=== PATIENT | male | born 1990 | race Caucasian/White ===

== ENCOUNTER 2017-05-12 10:41 | Emergency (ER) | payer SELFPAY ==
[2017-05-12 10:50] VITALS: TEMP 98.1; BMI 32.5
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
[2017-05-12] MEDS ORDERED: ACETAMINOPHEN 325 MG TABLET (FP) PO ONE (12:08)
[2017-05-12] MEDS ORDERED: ACETAMINOPHEN 325 MG TABLET (FP) ONE (12:14)
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
[2017-05-12 13:29] VITALS: BP 125/70; PULSE 89
== END 2017-05-12 13:29 | disposition home or self-care (01) ==
LOC: JER 10:41 → JERFT 10:41 → JER 13:29
DX: S06.0X1A Concussion with loss of consciousness of 30 minutes or less, initial encounter (principal); V13.4XXA Pedal cycle driver injured in collision with car, pick-up truck or van in traffic accident, initial encounter; Y92.414 Local residential or business street as the place of occurrence of the external cause; Y93.55 Activity, bike riding; Y99.8 Other external cause status
CPT/HCPCS: 70450-TC; 99281-25